=== PATIENT | male | born 2000 | race Caucasian/White ===

== ENCOUNTER 2021-03-06 14:23 | Emergency (ER) | payer OTHER, SELFPAY ==
--- NOTE | ~2021-03-06 | CT_ITS ---
EXAMINATION: CTA chest PE protocol DATE: 03/06/2021 19:31 INDICATION: Right-sided chest pain for one day TECHNIQUE: Computed tomography angiography (CTA) of the chest was performed with 100 mL Omnipaque-350 intravenous contrast timed to evaluate the pulmonary arteries. Coronal maximum intensity projection 3D-reconstructions were created by the technologist. Automated exposure control and iterative reconst ruction technique were employed. Exam dose: 852.70 mGy-cm total exam DLP. COMPARISON: None. FINDINGS: The pulmonary arteries are diagnostically enhanced, without evidence of pulmonary embolism. No thoracic aortic aneurysm or dissection. Normal heart size. No pericardial or pleural effusion. There are scattered patchy infiltrates in the upper and lower lobes, relatively sparing the middle lo be. Minimal right pleural effusion. IMPRESSION: Extensive scattered bilateral pulmonary infiltrates consistent with bilateral pneumonia Minimal right pleural effusion Reviewed, dictated and finalized at [facility] Reviewed, dictated and finalized at [facility]. TER DESIGNER IMPRESSION: Extensive scattered bilateral pulmonary infiltrates consistent wit h bilateral pneumonia Minimal right pleural effusion
--- NOTE | ~2021-03-06 | XR_ITS ---
XR chest 2V DATE: 03/06/2021 15:17 INDICATION: Right chest pain. Covid-positive 16 days ago. TECHNIQUE: PA and lateral views COMPARISON: None FINDINGS: Normal heart size. No hilar or mediastinal enlargement. There is mild patchy infiltrate in the mid and lower lung zones, most prominent in the left lower lob e. No pleural effusion or pneumothorax. IMPRESSION: Mild bilateral mid and lower lung infiltrate Reviewed, dictated and finalized at [facility]. DATA ARCHITECT
[2021-03-06 14:31] VITALS: BP 151/84; PULSE 116; RESP 20; TEMP 37.3; O2SAT 99
--- NOTE | 2021-03-06 14:34 | ECG_ITS ---
Measurements Intervals [place] Rate: 117 P: 25 HI: 153 QRS: 44 QRSD: 88 T: 33 QT: 291 QTc: 406 Interpretive Statements SINUS TACHYCARDIA BASELINE WANDER- II, III, AVR, AVF, V1-V6 ABNORMAL ECG Electronically Signed On 03-07-2021 7:57:26 BUSINESS OBJECTS ANALYST by Stevie Ya D.O.
[2021-03-06 14:58] LABS: Basophils Absolute Auto 0.1 K/mm3 (0.0-0.1); Basophils Percent Auto 0.8 % (0.2-1.2); Eosinophils Absolute Auto 0.1 K/mm3 (0-0.3); Eosinophils Percent Auto 1.1 % (0-4.4); Hematocrit 40.3 % (42.0-52.0); Hemoglobin 14.5 g/dL (14.0-18.0); Immature Granulocyte Absolute 0.04 K/mm3 (0.00-0.031); Immature Granulocyte Percent A 0.6 % (0-0.5); Lymphocytes Absolute Auto 2.32 K/mm3 (0.9-3.2); Lymphocytes Percent Auto 35.9 % (18.3-44.2); Mean Corpuscular Hemoglobin 29.6 pg (26-34); Mean Corpuscular Volume 82.2 fl (80-100); Mean Platelet Volume 11.2 fl (7.4-10.4); Monocytes Absolute Auto 0.7 K/mm3 (0.1-0.6); Neutrophils Absolute Auto 3.3 K/mm3 (1.3-6.7); Neutrophils Percent Auto 50.6 % (45.5-73.1); Platelet Count Result 280 k/mm3 (150-375); Red Cell Distribution Width 13.3 % (11.5-14.5); White Blood Count 6.5 K/mm3 (4.5-10.0)
[2021-03-06 15:05] LABS: INR 0.9; Prothrombin Time 12.4 Seconds (11.1-14.7)
[2021-03-06 15:06] LABS: Partial Thromboplastin Time 33.2 SECONDS (22.3-36.8)
[2021-03-06 15:08] LABS: Anion Gap 12 mmol/L (8-16); Blood Urea Nitrogen 14 mg/dL (9-20); Calcium 10.6 mg/dL (8.4-10.2); Carbon Dioxide 25 mmol/L (22-30); Chloride 104 mmol/L (98-107); Estimated CRCL calculation 209 ml/min; Estimated Glomerular Filt Rate > 60; Glucose 109 mg/dL (65-110); Potassium 4.1 mmol/L (3.4-5.0); Sodium 141 mmol/L (137-145)
[2021-03-06 15:19] LABS: Troponin I < 0.012 ng/mL (0.000-0.034)
[2021-03-06 17:53] VITALS: BP 144/120; PULSE 113; RESP 18; O2SAT 97
[2021-03-06 18:13] VITALS: BP 133/97; PULSE 104; RESP 20; O2SAT 100
[2021-03-06 18:20] LABS: Troponin I < 0.012 ng/mL (0.000-0.034)
--- NOTE | 2021-03-06 18:20 | ED.GENADULT ---
HPI - General Adult General Chief complaint: Chest Pain Stated complaint: Right-sided chest pain Time Seen by Provider: 03/06/21 18:06 Source: patient and RN notes reviewed History of Present Illness HPI narrative: Patient is a 20 y/o male complaining of right lower chest pain starting yesterday. He describes his pain as sharp and rates it as 8/10. His pain radiates to right shoulder. He has some mild SOB. Of note, he was diagnosed with COVID over 2 weeks ago when he had vomiting and diarrhea. However, his symptoms have mostly resolved. Related Data Allergies Allergy/AdvReac Type Severity Reaction Status Date / Time No Known Allergies Allergy Verified 03/06/21 18:16 Review of Systems Constitutional: Constitutional: Denies chills, Denies fever(s), Denies headache(s) and Denies weakness Eyes: Eyes: Denies blurry vision ENT: Denies headache(s) and Denies neck pain Cardiovascular: Cardiovascular: Reports chest pain and Reports dyspnea Respiratory: Respiratory: Denies cough and Reports dyspnea Gastrointestinal: Gastrointestinal: Denies abdominal pain, Denies diarrhea, Denies nausea and Denies vomiting Genitourinary: Genitourinary: Denies hematuria and Denies dysuria Musculoskeletal: Musculoskeletal: Denies back pain and Denies neck pain Neurologic: Denies headache(s) and Denies weakness Exam Const: General: no acute distress and well developed Orientation/consciousness: oriented to person, oriented to place, oriented to time and patient oriented x3 HENMT: Head: normocephalic Ears: external ears normal General nose exam: Normal external nose present Eyes: General: appearance normal, both eyes and all related structures Conjunctivae: conjunctivae normal Neck: Neck: normal visual inspection and full ROM Chest: Chest palpation & inspection: normal inspection of the chest and tenderness (right chest wall) Resp: Effort & Inspection: normal respiratory effort Auscultation: clear to auscultation bilaterally Cardio: Rate: regular rate Rhythm: regular rhythm GI: GI Palp: No abdominal tenderness and Yes Soft to palpation Skin: General skin exam: normal color and turgor normal Neuro: General: oriented to person, oriented to place, oriented to time and patient oriented x3 Cognition (Neuro): normal cognition Extrem: General: normal to inspection, full ROM and no pedal edema Psych: Appearance: grossly normal Mental Status: mental status grossly normal Affect: normal affect Course Vital Signs Vital signs: Vital Signs Temperature 37.3 C 03/06/21 14:31 Pulse Rate 116 H 03/06/21 14:31 Respiratory Rate 20 03/06/21 14:31 Blood Pressure 151/84 H 03/06/21 14:31 Pulse Oximetry 99 03/06/21 14:31 Temperature 37.3 C 03/06/21 14:31 Pulse Rate 115 H 03/06/21 21:47 Respiratory Rate 16 03/06/21 21:47 Blood Pressure 109/63 03/06/21 21:47 Pulse Oximetry 98 03/06/21 21:47 Medical Decision Making Vital Signs Vital Signs: Vital Signs Temperature 37.3 C 03/06/21 14:31 Pulse Rate 116 H 03/06/21 14:31 Respiratory Rate 20 03/06/21 14:31 Blood Pressure 151/84 H 03/06/21 14:31 Pulse Oximetry 99 03/06/21 14:31 Temperature 37.3 C 03/06/21 14:31 Pulse Rate 115 H 03/06/21 21:47 Respiratory Rate 16 03/06/21 21:47 Blood Pressure 109/63 03/06/21 21:47 Pulse Oximetry 98 03/06/21 21:47 Lab Data Result diagrams: 03/06/21 14:44 03/06/21 14:44 Labs: Lab Results 03/06/21 03/06/21 03/06/21 Range/Units 14:44 14:44 14:44 WBC 6.5 (4.5-10.0) K/mm3 RBC 4.90 (4.6-6.20) M/mm3 Hgb 14.5 (14.0-18.0) g/dL Hct 40.3 L (42.0-52.0) % MCV 82.2 (80-100) fl MCH 29.6 (26-34) pg MCHC 36.0 (32-36) g/dl RDW 13.3 (11.5-14.5) % Plt Count 280 (150-375) k/mm3 MPV 11.2 H (7.4-10.4) fl Immature Gran % (Auto) 0.6 H (0-0.5) % Neut % (Auto) 50.6 (45.5-73.1) % Lymph % (Auto) 35.9 (18.3-44.2) %
[2021-03-06 18:31] LABS: D Dimer 0.32 ug/mL (<0.48)
[2021-03-06] MEDS: SODIUM CHLORIDE 0.9% IV 1,000 ML 999 ML IV CONT (19:09)
[2021-03-06] MEDS: KETOROLAC 30 MG/ML VIAL (*BKC) IV PUSH (19:09)
[2021-03-06 20:49] LABS: Troponin I < 0.012 ng/mL (0.000-0.034)
[2021-03-06 21:47] VITALS: BP 109/63; PULSE 115; RESP 16; O2SAT 98
== END 2021-03-06 21:48 | disposition home or self-care (01) ==
PROVIDERS: Family Medicine; Emergency Provider Emergency Medicine
DX: U07.1 COVID-19 (principal); J12.82 Pneumonia due to coronavirus disease 2019; R07.9 Chest pain, unspecified; R00.0 Tachycardia, unspecified
CPT/HCPCS: 36415; 71046; 71275; 80048; 84484; 85025; 85380; 85610; 85730; 93005; 96361; 96374; 99284; J1885; J7030; Q9967